=== PATIENT | female | born 1995 | race Caucasian/White ===

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

== ENCOUNTER → 2021-02-01 | Day surgery (SDC) | payer BC ==
[~2021-02-01] MED LIST: BUPROPION HCL100 M1 PO; FOLATE PO; HYDROCODON-ACE1 EAC4 PO; IBU600 MG PO; LAMICTAL200 MG PO; PRENATAL TABLE1 EAC1 PO
[2021-02-01 09:20] LABS: HEMOGLOBIN 12.1 gm/dl (12.3-15.3); RED BLOOD COUNT 4.02 M/UL (4.00-5.10); WHITE BLOOD COUNT 4.5 K/UL (4.5-11.0)
== END | disposition home or self-care (01) ==
LOC: OR 08:17
PROVIDERS: Obstetrics & Gynecology
DX: O02.1 Missed abortion (principal); Z20.822 Contact with and (suspected) exposure to COVID-19; Z79.899 Other long term (current) drug therapy
CPT/HCPCS: 84703; 85025; 86850; 86900; 86901; J1100; J1885; J2001; J2250; J2405; J2704; J2795; J3010; J7120; U0002